=== PATIENT | female | born 1940 | race Caucasian/White ===

== ENCOUNTER → 2017-08-07 | Outpatient (CLI) | payer MEDICARE ==
--- NOTE | 2017-08-07 14:57 | RADIOLOGY REPORT PS360 ---
US THYROID HISTORY: Right thyroid nodule NEOPLASM OF THYROID ORDERING PHYSICIAN: Vito Zhu MD PATIENT AGE: 77 years COMPARISON: None FINDINGS: Right lobe: The right lobe of the thyroid gland measures 4.9 x 3.4 x 4.3 cm. There is a solid mass occupying the right lobe of the thyroid gland measuring 4 x 3 cm with increased blood flow. Left lobe: 2.7 x 1 x 1.2 cm with an unremarkable appearance. Isthmus: Unremarkable IMPRESSION: 4 cm solid mass of the right lobe of the thyroid gland. Fine-needle aspiration performed of this nodule subsequently. Cytology pending
--- NOTE | 2017-08-07 14:58 | RADIOLOGY REPORT PS360 ---
US BIOPSY OR PARACENTESIS HISTORY: Right thyroid mass NEOPLASM OF THYROID ORDERING PHYSICIAN: Vito Zhu MD PATIENT AGE: 77 years COMPARISON: None TECHNIQUE: Following obtaining informed consent, using aseptic technique and local anesthesia with buffered lidocaine, fine-needle aspiration was performed of the nodule of interest using sonographic guidance. 3 passes were made into the nodule with a 25-gauge needle. Specimen was given to cytology. The patient tolerated the procedure well without evidence of immediate complications and left the ultrasound suite in stable condition. CYTOLOGY:Pending IMPRESSION: Uneventful fine-needle aspiration of the right thyroid nodule with cytology pending
== END ==
LOC: RAD 09:39
PROC: 0G9H3ZX Drainage of Right Thyroid Gland Lobe, Percutaneous Approach, Diagnostic (ICD-10-PCS; principal; 2017-08-07)
DX: D34 Benign neoplasm of thyroid gland (principal); E03.0 Congenital hypothyroidism with diffuse goiter; E03.9 Hypothyroidism, unspecified